=== PATIENT | male | born 2005 | race Caucasian/White ===

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

== ENCOUNTER 2024-06-10 21:54 | Emergency (ER) | payer BC, SELFPAY ==
[2024-06-10 21:55] VITALS: BP 173/102; PULSE 83; RESP 22; TEMP 36.6; O2SAT 100
--- NOTE | 2024-06-10 22:00 | EDS_ITS ---
HPI History of Present Illness Chief Complaint: Ear Problem Informant: patient Onset/Context/Timing Onset: Today Context: Sudden Onset Timing: Continuous Quality: Decreased hearing Location: Right ear Worsened by: Nothing Relieved by: Nothing Narrative Narrative: Patient presents with a cotton swab in his right external auditory canal that occurred this morning. Patient states it has been in his ear all day. Patient admits to decreased hearing out of his right ear. Patient denies any fevers or chills. Patient denies any sore throat or rhinorrhea. Patient denies any shortness of breath or cough. Patient denies any discharge or drainage from his ear. Patient states nothing makes his symptoms worse and nothing makes it better. PFSH PFSH Home Medications ?Medication ?Instructions ?Recorded ?Last Taken ?Type NK 03/15/21 Unknown History Allergy/AdvReac Type Severity Reaction Status Date / Time bee venom protein (honey bee) Allergy Hives Verified 06/10/24 21:55 Surgical History History of tonsillectomy and adenoidectomy Social History (Updated 06/10/24 @ 22:[address] Aiden Martin, ) Smoking Status: Never smoker Electronic Cigarette Use: with nicotine ROS ROS ED Constitutional Constitutional ED: Denies chills or fever(s) Eyes Eyes: Denies blurry vision or change in vision ENT ENT ED: Denies rhinorrhea or sore throat Cardiovascular Cardiovascular: Denies chest pain or palpitations Respiratory/Chest Respiratory/Chest: Denies cough or dyspnea Gastrointestinal Gastrointestinal: Denies nausea or vomiting Genitourinary Genitourinary ED: Denies dysuria or hematuria Musculoskeletal Musculoskeletal: Denies back pain or neck pain Integumentary Denies abscess or rash Neurologic Neurologic: Denies headache(s) or weakness Allergic/Immunologic Allergic/Immunologic ED: Denies mouth swelling or urticaria EXAM Physical Exam Const Vital Signs: 06/10/24 21:55 Temperature 97.9 F Temperature Source Temporal Pulse Rate 83 Respiratory Rate 22 H Blood Pressure 173/102 H Blood Pressure Mean 125 Pulse Ox 100 Oxygen Delivery Method Room Air Positive well nourished and well developed General Appearance ED: well developed and NAD HEENT Reports moist mucous membranes HEENT Narrative: There is a white foreign body noted in the right external auditory canal. There is some mild edema of the external auditory canal. The tympanic membrane is clear. The left external auditory canal and tympanic membrane are clear. Oral mucosa is pink and moist. Neck is supple. Trachea is midline. There is no JVD noted. There is no lymphadenopathy noted. Neck no lymphadenopathy, supple and no JVD Resp normal respiratory effort and clear to auscultation bilaterally Cardio regular rate and regular rhythm Neuro oriented x3, CN's II-XII intact bilaterally and no sensory deficits noted Sensorium / Orientation: alert Motor Exam: strength 5/5 throughout Psych mental status grossly normal MDM MDM MDM Narrative Medical decision making narrative: Nicotine cessation was discussed. The right external auditory canal was irrigated with lukewarm water. The foreign body was able to be visualized at the opening of the external auditory canal. It was then grabbed with alligator forceps. It was removed intact. There is no perforation of the tympanic membrane. Patient tolerated procedure well. Patient was instructed to follow- up with his primary care physician in 5 to 7 days. Patient was instructed to return if worse in any way. Patient understood and was agreeable with plan. All questions were answered. Discharge Plan Triage Chief Complaint: Ear Problem ED Provider: Aiden Martin Dx/Rx/DC Orders Clinical Impression: Foreign body in right ear, initial encounter, Nicotine vapor product user Instructions: ED Foreign Body, Ear Canal (Removed) Prescriptions: No Action NK Primary Care Provider: Jose L Mills Referrals: Jose L Mills DO [Primary Care Provider] - 5-7 Days Print Language: Estonian Disposition Disposition: Home, Self Care
== END 2024-06-10 23:34 | disposition home or self-care (01) ==
PROVIDERS: Emergency Provider Emergency Medicine; PCP Preventive Medicine Occupational Medicine; Visit Provider Emergency Medicine
DX: T16.1XXA Foreign body in right ear, initial encounter (principal); W44.8XXA Other foreign body entering into or through a natural orifice, initial encounter; F17.290 Nicotine dependence, other tobacco product, uncomplicated
CPT/HCPCS: 99283